=== PATIENT | male | born 1935 | race Caucasian/White ===

== ENCOUNTER → 2023-03-28 | Outpatient (CLI) | payer OTHER ==
[~2023-03-28] MED LIST: NORCO 325 MG-51 TAB PO
== END ==
LOC: COL.CARD 09:48
DX: R06.02 Shortness of breath (principal); Z87.891 Personal history of nicotine dependence

== ENCOUNTER → 2023-04-27 | Outpatient (CLI) | payer MEDICARE | LOC: COL.RAD 06:59 | DX: J98.11 Atelectasis (principal); K44.9 Diaphragmatic hernia without obstruction or gangrene ==